=== PATIENT | female | born 1960 | race Caucasian/White ===

== ENCOUNTER 2020-12-22 09:34 | Emergency (ER) | payer OTHER, SELFPAY ==
--- NOTE | ~2020-12-22 | XR_ITS ---
EXAMINATION: XR LUMBOSACRAL SPINE CLINICAL INFORMATION: Pain COMPARISON: None TECHNIQUE: Three views of the lumbosacral spine. FINDINGS: There is curvature of the lumbar spine to the right. There is slight loss of height of the superior endplate of the L5 vertebral body questionable for mild compression fracture versus changes due to scoliosis. There is degenerative disc disease at L5-S1. There is lower lumbar spine facet arthritis. There is evidence of atherosclerotic disease. XR/XR lumbar spine 2-3V IMPRESSION: Mild scoliosis. Slight loss of height of the L1 vertebral body questionable for mild compression fracture versus changes due to scoliosis. Degenerative disc disease at L5-S1 and lower lumbar spine facet disease.
[2020-12-22 10:09] VITALS: BP 116/76; PULSE 84; RESP 18; TEMP 36.7; O2SAT 100; BMI 21.0
--- NOTE | 2020-12-22 10:58 | ED_ITS ---
HPI - Back Pain/Injury General Chief Complaint: Back Pain/Injury Stated Complaint: excruciating pain from ankles to hip Time Seen by Provider: 12/22/20 10:44 Source: patient Mode of arrival: ambulatory Limitations: no limitations History of Present Illness HPI Narrative: 60 yo female with hx of hypothyroidism and prior back pain with discectomy L5 many years ago comes in with 3 days of low back pain resulting in R leg pain worse with movement MD elicited complaint: back pain Pertinent past history: prior back pain Onset (ago): day(s) (3) Timing: constant and progressively worsening Severity: moderate Similar Symptoms Previously: No Quality: sharp and aching Location: lumbar spine Radiation: right leg below the knee Exacerbating factors: movement and walking Relieving factors: immobilization 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) Treatments prior to arrival: NSAIDS Work related injury: No Related Data Previous Rx's Medication Instructions Recorded cyclobenzaprine 10 mg tablet 10 mg PO TID PRN #14 tab 12/22/20 hydrocodone 5 mg-acetaminophen 325 1 tab PO Q6H PRN #12 tab 12/22/20 mg tablet lidocaine 4 % topical patch 1 patch TOPICAL DAILY PRN #10 ea 12/22/20 Allergies Allergy/AdvReac Type Severity Reaction Status Date / Time No Known Allergies Allergy Unverified 02/07/20 16:16 none Allergy Unknown Uncoded 06/12/19 00:00 Review of Systems Review of Systems: Constitutional : No Weight loss, No Fever, No Chills, ENT/Mouth : No Hearing loss, No Ear Pain, No Nasal Congestion, No Sinus Pain, No Hoarseness, No sore throat, No Rhinorrhea, No Swallowing Difficulty Cardiovascular : No Chest Pain, No SOB Respiratory : No Cough, No Dyspnea Gastrointestinal : No Nausea, No Vomiting, No Diarrhea, No abdominal Pain, No Hematochezia, No Melena Genitourinary : No Dysuria, No Urinary Frequency, No Hematuria, No Urinary Incontinence, Musculoskeletal : positive back pain Skin : No Skin Lesions, No rash Neuro : No Weakness, No Numbness, No Paresthesias, no loss of bowel or bladder incontinence, no saddle anesthesia PMFSH Past Medical History Attestation statement: The following information was validated with the patient. Medical History Hypothyroid Social History Social History (Updated 12/22/20 @ 11:11 by Danielle Rincon DO) Patient Tobacco Use Status: Current everyday Tobacco user Use of substances other than those prescribed or required for medical reasons: No Advance Directives: Yes Advance Directives Information Provided: Yes Advance Directives on File: No Patient : No Physical Exam Vital Signs: Vital Signs: Last Vital Signs Temp 98.0 F 12/22/20 10:09 Pulse 84 12/22/20 10:09 Resp 18 12/22/20 10:09 BP 116/76 12/22/20 10:09 Pulse Ox 100 12/22/20 10:09 Body Mass Index 21.0 Appearance: Alert. Oriented X3. No acute distress. Eyes: Pupils equal, round and reactive to light. ENT: Pharynx normal. Neck: Normal inspection. Neck supple. CVS: Normal heart rate and rhythm. Pulses normal. Respiratory: No respiratory distress. Breath sounds normal. Abdomen: Soft and nontender. Back: R lower back pain ttp R buttock pain with radiation down leg distal NV intact Skin: Skin warm and dry. Normal skin color. Normal skin turgor. Extremities: No lower extremity edema. No calf ttp Neuro: Oriented X 3. No motor deficit. No sensory deficit. Course Course Course Narrative: stable for DC can ambulate MDM - Back Pain/Injury MDM Narrative Medical decision making narrative: 60 yo female with hx of HTN, prior back pain with discectomy L5 many years ago comes in with 3 days of low back pain resulting in R leg pain worse with movement at this time her exam appears consistent with sciatica but given age and smoking history xray ordered, lyme test - PO pain control Discharge Plan Discharge Clinical Impression: Lumbar radiculopathy Patient Disposition: Home, Self-Care Instructions: Vertebral Compression Fracture (ED), Lumbar Radiculopathy (ED) Additional Instructions: return to ED for any worsening symptoms or concerns Mild scoliosis. Slight loss of height of the L1 vertebral body questionable for mild compression fracture versus changes due to scoliosis. Degenerative disc disease at L5-S1 and lower lumbar spine facet disease. Prescriptions: New cyclobenzaprine 10 mg tablet 10 mg PO TID PRN (Reason: muscle spasm) Qty: 14 RF: 0 lidocaine 4 % adhesive patch,medicated 1 patch topical DAILY PRN (Reason: pain) Qty: 10 RF: 0 hydrocodone-acetaminophen 5-325 mg tablet 1 tab PO Q6H PRN (Reason: pain) Qty: 12 RF: 0 Referrals: Della Rhodes DIRECTOR OF RESTAURANTS [Primary Care Provider] - 2 days Stand Alone Forms: Work/School Release
[2020-12-22] MEDS: predniSONE 20 MG TABLET 40 MG PO (11:19)
[2020-12-22] MEDS: Cyclobenzaprine HCl 10 MG TABLET PO (11:19)
[2020-12-23 21:12] LABS: Lyme Abs Screen <0.90 index
== END 2020-12-22 12:34 | disposition home or self-care (01) ==
PROVIDERS: Emergency Provider Emergency Medicine; PCP Nurse Practitioner Family
DX: M54.16 Radiculopathy, lumbar region (principal); I10 Essential (primary) hypertension
CPT/HCPCS: 36415; 72100; 86617; 86618; 99283

== ENCOUNTER 2023-03-19 13:11 | Outpatient (AMB) | payer OTHER, SELFPAY ==
[2023-03-19 13:46] VITALS: BP 112/68; PULSE 74; TEMP 36.7; O2SAT 95; BMI 19.0
--- NOTE | 2023-03-19 13:46 | MHC.OFFWIV ---
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 She states that she has a history of having a cavity filled to a tooth on her right lower jaw, which caused her some pain over the following few days, however symptoms seem to have resolved until starting up with severe pain to the area just under the tooth, and radiating along the gumline, and now swelling to the lower jaw upon wakening this morning. She denies fever or chills, headache or dizziness or vertigo, myalgias or malaise, nausea vomiting or diarrhea, or other significant associated symptoms. She does have a new dentist, and plans to see them early next week. [facility] Medical History Hypothyroid Social History (Updated 12/22/20 @ 11:11 by Pippa Rincon DO) Patient Tobacco Use Status: Current everyday Tobacco user Physical Exam Vital Signs: Last Vital Signs Temp 98.0 F 03/19/23 13:46 Pulse 74 03/19/23 13:46 BP 112/68 03/19/23 13:46 Pulse Ox 95 03/19/23 13:46 Oxygen Delivery Method Room Air 03/19/23 13:46 BMI result Body Mass Index 19.0 Const General: cooperative, healthy appearing, comfortable, no acute distress, alert, awake, Physically active and well groomed; No diaphoretic, ill appearing, intoxicated appearing, poor hygiene or tired appearing Nutritional Appearance: average body habitus Limitations: no limitations HEENT Head: Yes normal to inspection, Yes normocephalic and Yes atraumatic Face and sinus: Yes normal facial exam Mouth: lip normal and tongue normal Teeth and gingiva: fair dentition and gingiva abnormal (Right lower gumline is edematous and erythematous, tender to palpation) diffusely erythematous and tender Neck Neck: Yes normal visual inspection, Yes no lymphadenopathy, Yes trachea midline, Yes supple and No anterior neck swelling Resp Effort & Inspection: normal respiratory effort Cardio Rate: regular rate Skin Other: Good color, warm and dry Psych Appearance: grossly normal Mental Status: mental status grossly normal Speech and movement: Normal speech and movement present Affect: normal affect Attitude: cooperative Thought process: Normal thought process present Insight: Good insight present (Psych) Judgement: Good judgement present (Psych) Assessment & Plan Assessment & Plan (1) Dental infection: Code(s): K04.7 - Periapical abscess without sinus Plan: At this time, she does not have any bony tenderness, so I think the abscess is localized to the gingiva. Due to patient's severe pain, I wrote her for prescription dose of ibuprofen, as well as alternating with acetaminophen with codeine low-dose for 2 days. I also started her on Augmentin for likely dental infection with abscess under a dental caries. She plans to call dentist on Tuesday for urgent appointment. In the meantime, she can go to the emergency department if abscess worsens, and she has increased swelling and pain to the jaw. Medications: New ibuprofen 800 mg PO Q8H PRN 30 tabs 0RF pain acetaminophen-codeine 300-15 mg max 4 tablets a day 1 tab PO Q4-6H PRN 8 tabs 0RF pain amoxicillin-pot clavulanate 875-125 mg 1 tab PO BID 7 days 14 tabs 0RF Coding Level of Care Code New Pt Level 4 (23689) Diagnoses Dental infection K04.7
== END 2023-03-19 14:19 | disposition home or self-care (01) ==
PROVIDERS: PCP Nurse Practitioner Family; Visit Provider Physician Assistant Medical
DX: K04.7 Periapical abscess without sinus (principal)
CPT/HCPCS: 99051; 99204

== ENCOUNTER 2024-09-06 13:51 | Outpatient (AMB) | payer OTHER, SELFPAY ==
[2024-09-06 14:47] VITALS: BP 110/70; PULSE 76; TEMP 36.5; O2SAT 97; BMI 19.7
--- NOTE | 2024-09-06 14:47 | AM.OFFWIN_ITS ---
Intake Vital Signs 09/06/24 14:47 Height 5 ft 3 in Weight 111 lb BMI 19.7 BP 110/70 Blood Pressure Location Lt brachial Position Sitting Pulse 76 Pulse Source Pulse Oximeter Temp 97.7 F Temp Source Oral Pulse Oximetry (%) 97 Oxygen Delivery Method Room Air Intake Visit Reasons: EP Deep cough, headache, aches Intake Note: Patient here for cough, headaches, body aches, vomiting and diarrhea that has been present for a couple of days. Patient Tobacco Use Status: Current everyday Tobacco user Allergies No Known Allergies Allergy (Unverified 09/06/24 14:49) Do you need a note to return to daycare/school/sports/work: Yes HPI HPI Comments History of Present Illness Details 63 y/o Female patient who presents to [facility] walk in clinic with c/o URI symptoms x 2 days. Pt reports Cough, Headaches, Body aches, Nausea, vomiting and diarrhea. PFSH Medical History (Updated 09/06/24 @ 15:15 by Lillian Helton NP) Acute respiratory disease Hypothyroid Social History (Updated 12/22/20 @ 11:11 by Pippa Rincon DO) Patient Tobacco Use Status: Current everyday Tobacco user Physical Exam Vital Signs: Last Vital Signs Temp 97.7 F 09/06/24 14:47 Pulse 76 09/06/24 14:47 BP 110/70 09/06/24 14:47 Pulse Ox 97 09/06/24 14:47 Oxygen Delivery Method Room Air 09/06/24 14:47 BMI result Body Mass Index 19.7 Const General: no acute distress; No comfortable Nutritional Appearance: thin Orientation/consciousness: patient oriented x3 HEENT Head: Yes normocephalic Ears: external ears normal and TM abnormal bulging bilateral and with fluid behind the TM bilateral General nose exam: Nasal discharge present Mouth: moist mucous membranes Throat: Yes uvula midline Resp Effort & Inspection: normal respiratory effort Auscultation: clear to auscultation bilaterally, no crackles, no rales, no rhonchi and no wheezes Cardio Rhythm: regular rhythm Heart sounds: S1 normal heart sound present and S2 normal heart sound present Neuro General: patient oriented x3, gait normal and moves all extremities Psych Speech and movement: Normal speech and movement present Assessment & Plan Assessment & Plan (1) Acute respiratory disease: Code(s): J06.9 - Acute upper respiratory infection, unspecified Plan: Ordered SARs Acetaminophne for pain relief OTC cough remedies. Rest and hydrate well with warm fluids. Orders: Orders SARS-CoV2/FLU/RSV Today J06.9 - Acute upper respiratory infection, unspecified Medications: New acetaminophen 1,000 mg (2 x 500 mg) PO Q6H PRN 30 caps 0RF pain R51.9 - Headache, unspecified dextromethorphan polistirex ER (Delsy 12 hour) 10 mL PO Q12H 89 mL 0RF cough J06.9 - Acute upper respiratory infection, unspecified, R05.9 - Cough, unspecified benzonatate 100 mg PO BID 60 caps 0RF R05.9 - Cough, unspecified Discontinued ibuprofen Discontinued Reason: Patient Completed Course 800 mg PO Q8H PRN 30 tabs 0RF pain Coding Level of Care Code Est Pt Level 4 (55781) Diagnoses Acute respiratory disease J06.9 Time Spent (min) 20
== END 2024-09-06 15:32 | disposition home or self-care (01) ==
PROVIDERS: PCP Nurse Practitioner Family; Visit Provider Nurse Practitioner Family
DX: J06.9 Acute upper respiratory infection, unspecified (principal)

== ENCOUNTER 2024-09-06 13:51 | Outpatient (REF) | payer OTHER, SELFPAY ==
[2024-09-06 18:08] LABS: Influenza A PCR NEGATIVE (Negative); Influenza B PCR NEGATIVE (Negative); Resp Syncy Virus RNA Qual PCR NEGATIVE (Negative); SARS COV2 PCR INHOUSE NEGATIVE (Negative)
== END 2024-09-06 13:52 | disposition home or self-care (01) ==
LOC: HO.LAB 13:51
PROVIDERS: Nurse Practitioner Family; PCP Nurse Practitioner Family
DX: J06.9 Acute upper respiratory infection, unspecified (principal)
CPT/HCPCS: 0241U

== ENCOUNTER 2024-09-12 10:54 | Outpatient (AMB) | payer OTHER, SELFPAY ==
--- NOTE | 2024-09-12 11:00 | AM.OFFWIN_ITS ---
Intake Vital Signs 09/12/24 11:02 Weight 114 lb BP 110/74 Blood Pressure Location Rt brachial Position Sitting Pulse 72 Pulse Source Pulse Oximeter Temp 97.8 F Temp Source Oral Pulse Oximetry (%) 93 Oxygen Delivery Method Room Air Intake Visit Reasons: EP-sinus infection Intake Note: Patient here for sinus infection, headaches and eye pressure. Patient Tobacco Use Status: Current everyday Tobacco user Allergies No Known Allergies Allergy (Unverified 09/06/24 14:49) Do you need a note to return to daycare/school/sports/work: No HPI HPI Comments History of Present Illness Details Patient is a 63-year-old female with a past medical history of hypothyroid complaining of continued sinus symptoms and left ear pain. She r eports a history of sinusitis symptoms last week, including left-sided maxillary pain, headache, and neck pain, which worsens on bending forward. Initial presentation included fever, vomiting, and diarrhea. She reports a recent decline in auditory acuity necessitating increased television volume. She felt the use of Delsym and Benzonatate was noted to be conflicted so she took the Delsym. The patient has not used nasal sprays or irrigation techniques at home. Physical Exam General: Cooperative, healthy appearing, comfortable and no acute distress Orientation/consciousness: Patient oriented x3 Limitations: No limitations Head: Normal to inspection Ears: Hearing impaired, left ear appears infected and red Nose: Normal external nose present, Normal nares present and No nasal discharge present Face and sinus: Normal facial exam and ethmoid sinuses tender Mouth: Normal oral and palatal mucosa present and moist mucous membranes Throat: Yes tonsils normal, Yes uvula midline. Posterior oropharynx erythema Eyes: Appearance normal, both eyes and all related structures Neck: Neck pain present Respiratory: Normal respiratory effort, able to speak in complete sentences, no respiratory distress, not tachypneic, no tripod positioning and no use of accessory muscles Skin: No rashes or lesions noted Neuro: Patient oriented x3 Extremities: Normal to inspection and Yes no clubbing, cyanosis or edema [facility] Medical History (Updated 09/12/24 @ 11:25 by Anabella Nogueira PA-C) Acute respiratory disease Hypothyroid Social History (Updated 12/22/20 @ 11:11 by Pippa Rincon DO) Patient Tobacco Use Status: Current everyday Tobacco user Review of Systems Const All systems reviewed & are unremarkable except as noted in HPI and below Physical Exam Vital Signs: Last Vital Signs Temp 97.8 F 09/12/24 11:02 Pulse 72 09/12/24 11:02 BP 110/74 09/12/24 11:02 Pulse Ox 93 09/12/24 11:02 Oxygen Delivery Method Room Air 09/12/24 11:02 Assessment & Plan Assessment & Plan (1) Acute bacterial sinusitis: Code(s): J01.90 - Acute sinusitis, unspecified; B96.89 - Other specified bacterial agents as the cause of diseases classified elsewhere Plan: VSS, pt well appearing and PE remarkable for bilateral ethmoid sinus tenderness. Flonase is prescribed for sinus relief, explained how to be administered correctly with two sprays per nostril twice daily to enhance efficacy. Augmentin is introduced to combat the bacterial aspect of the potential sinus and ear infections, given the duration of non-improvement with previous measures. Delsym and Benzonatate will not be used together; the patient is advised to adhere to the singular usage of such medications tailored to symptom relief appropriately. COVID-19 retesting is considered necessary due to the possible improper sampling of earlier tests. Patient was informed and verbally consented to the use of an ambient scribe for clinic note documentation during this visit Orders: Orders SARS-CoV2/FLU/RSV Today R09.89 - Other specified symptoms and signs involving the circulatory and respiratory systems Medications: New fluticasone propionate 50 mcg/actuation administer into each nostril 1 spray intranasal Q12H 16 grams 0RF amoxicillin-pot clavulanate 875-125 mg 1 tab PO Q12H 14 tabs 0RF Coding Level of Care Code New Pt Level 3 (18148) Diagnoses Acute bacterial sinusitis J01.90; B96.89
[2024-09-12 11:02] VITALS: BP 110/74; PULSE 72; TEMP 36.6; O2SAT 93
--- OUTSIDE RECORDS SUMMARY | 2024-09-12 13:05 | XMS_ITS | Continuity of Care Document ---
Author Organization [facility] Address [address] [place] [address]- Care Team Providers Care Pelletizer Tender Name Role Phone Carmelo BRUCE, Della Cook Primary Care Physician Encounter [facility] ACCT R [id number] Date(s): 08/07/24 - 09/06/24 [facility] [address] [place] [address]- Encounter Type: Triage Allergies, Adverse Reactions, Alerts No Known Allergies Immunizations Given and Recorded Vaccine Date Status Refusal Reason SARS-CoV-2 (COVID-19) mRNA-1273 vaccine 09/20/20 R ecorded SARS-CoV-2 (COVID-19) mRNA-1273 vaccine 09/02/20 R ecorded SARS-CoV-2 (COVID-19) mRNA-1273 vaccine 08/21/20 R ecorded SARS-CoV-2 (COVID-19) mRNA-1273 vaccine 08/05/20 R ecorded tetanus/diphtheria/pertussis, acel(Tdap) 05/23/15 Recorded Medications citalopram 10 mg oral tablet 1 tablet, By Mouth, Daily, # 30 tablet, 4 Refills, Maintenance, 08/08/24 11:35:00 AM EDT, [facility], 160.2, cm, 05/04/24 12:47:00 EST, Height Start Date: 08/08/24 Status: Ordered Quantity: 30.0 Unit: tablet Repeat number: 1 Fosamax 70 mg oral tablet 1 tablet = 70 mg, By Mouth, Every week, # 12 tablet, 3 Refills, Maintenance, 10/28/23 9:50:00 AM EDT,Tablet, [facility], Partial fill upon patient request if the prescription is for a schedule IIopioid drug., 160.2, cm, 10/28/23 9:28:00 EDT, Height Start Date: 10/28/23 Status: Ordered Quantity: 12.0 Unit: tablet Repeat number: 4 Multivitamin 0 Refills, Maintenance, 04/22/23 2:06:00 PM EST Start Date: 04/22/23 Status: Ordered Repeat number: 1 Probiotic Formula By Mouth, Daily, 0 Refills, Maintenance, 04/22/23 2:06:00 PM EST Start Date: 04/22/23 Status: Ordered Repeat number: 1 Wellbutrin XL 150 mg/24 hours oral tablet, extended release 1 tablet = 150 mg, By Mouth, Every 24 hours, replace 300mg, # 30 tablet, 6 Refills, Maintenance, 08/26/23 9:21:00 AM EDT, [facility], Partial fill upon patient request if the prescription is for aschedule II opioid drug., 160.2, cm, 08/26/23 9:04:00 EDT, Height Start Date: 08/26/23 Stop Date: 03/23/24 Status: Ordered Quantity: 30.0 Unit: tablet Repeat number: 7 Problem List Condition Confirmation Course Effective Dates Status H ealth Status Informant Cholecystitis, chronic Confirmed 05/23/17 Active Lumbar disc disease Confirmed 05/23/93 Active Pulmonary nodules Confirmed Active Osteoporosis Confirmed Active Depression, major, recurrent Confirmed Active Smoker 1 Confirmed 05/23/79 Active Subclinical hypothyroidism Confirmed 05/23/06 Active Vitamin D deficiency Confirmed 05/23/13 Active 12 PPD Social History Social History Type Response Smoking Status 5-9 cigarettes (betw een 1/4 to 1/2 pack)/day in last 30 days; Type: Cigarettes; Tobacco use times per day: 0.5 PPD previously 1.5 PPD up until 2012; Started at age: 18; entered on: 04/22/23 Sex Sex Representation Female (finding) Patient Care team information Care Team Personnel Name: Carmelo BRUCE, Della Cook Position: [facility]O Associate Professional Member Role: PCP Address: [address] [place] [phone]- Telecom: Care Team Related Persons Name: AMANDA ALICIA Insurance Providers Guarantor name: SATNAM ALICIA Health Plan Information #: 1 Payer: [facility] Member Number: NA Policy Number: NA Group Number: NA
--- OUTSIDE RECORDS SUMMARY | 2024-09-12 13:05 | XMS_ITS | Continuity of Care Document ---
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 Name Role Phone Carmelo BRUCE, Della Cook Primary Care Physician Encounter [facility] ACCT R [id number] Date(s): 08/07/24 - 09/06/24 [facility] [address] [place] [address]- Encounter Type: Triage Allergies, Adverse Reactions, Alerts [...] Personnel Name: Carmelo BRUCE, Della Cook Position: [facility] Associate Professional Member Role: PCP Address: [address] [place] [phone]- Telecom: Care Team Related Persons Name: AMANDA ALICIA Insurance Providers Guarantor name: SATNAM ALICIA Health Plan Information #: 1 Payer: [facility] Member Number: NA Policy Number: NA Group Number: NA
--- OUTSIDE RECORDS SUMMARY | 2024-09-12 13:05 | XMS_ITS | Continuity of Care Document ---
Author Organization [facility] Address [address] [place] [address]- Care Team Providers Care Pilates Coordinator Name Role Phone Carmelo BRUCE, Della Cook [id number] [place] [address]- Encounter Type: Triage Allergies, Adverse Reactions, Alerts [...] Care team information Care Team Personnel Name: Della Rhodes NP Position: [facility] PC[facility] Associate Professional Member Role: PCP Address: [address] [place] [phone]- Telecom: Care Team Related Persons Name: AMANDA ALICIA Insurance Providers Guarantor name: SATNAM ALICIA Health Plan Information #: 1 Payer: [facility] Member Number: NA Policy Number: NA Group Number: NA
== END 2024-09-12 11:37 | disposition home or self-care (01) ==
PROVIDERS: PCP Nurse Practitioner Family; Visit Provider Physician Assistant
DX: J01.90 Acute sinusitis, unspecified (principal); B96.89 Other specified bacterial agents as the cause of diseases classified elsewhere

== ENCOUNTER 2024-09-12 10:54 | Outpatient (REF) | payer OTHER, SELFPAY ==
[2024-09-12 14:38] LABS: Influenza A PCR NEGATIVE (Negative); Influenza B PCR NEGATIVE (Negative); Resp Syncy Virus RNA Qual PCR NEGATIVE (Negative); SARS COV2 PCR INHOUSE NEGATIVE (Negative)
== END 2024-09-12 10:55 | disposition home or self-care (01) ==
LOC: HO.LAB 10:54
PROVIDERS: PCP Nurse Practitioner Family; Visit Provider Physician Assistant
DX: J01.90 Acute sinusitis, unspecified (principal); B96.89 Other specified bacterial agents as the cause of diseases classified elsewhere; R09.89 Other specified symptoms and signs involving the circulatory and respiratory systems; R50.9 Fever, unspecified
CPT/HCPCS: 0241U

== ENCOUNTER 2025-04-05 09:38 | Outpatient (REF) | payer OTHER, BC, SELFPAY ==
[2025-04-05 11:08] LABS: MANUAL DIFF FLAG NO
[2025-04-05 11:15] LABS: Hematocrit 41.0 % (37.0-47.0); Hemoglobin 13.7 g/dl (12.0-16.0); Imm Gran Abs Auto 0.02 X10*3/uL (0.00-0.03); Imm Gran Pct Auto 0.3 % (0.0-0.4); Lymphocytes Absolute Auto 1.3 X10*3/uL (1.2-4.9); Mean Corpuscular HGB Conc 33.4 g/dl (31.0-35.0); Mean Corpuscular Hemoglobin 30.0 pg (27.0-33.0); Mean Corpuscular Volume 89.7 fL (80.0-98.0); NRBC Abs Auto 0.000 X10*3/uL (0.0-0.012); NRBC Pct Auto 0.0 /100WBC (0.0-0.2); Platelet Count 211 X10*3/uL (160-400); Red Blood Count 4.57 X10*6/uL (4.20-5.50); White Blood Count 7.2 X10*3/uL (4.8-10.8)
[2025-04-05 12:29] LABS: Alanine Aminotransferase 22 U/L (0-31); Albumin Level 4.7 g/dL (3.5-5.0); Alkaline Phosphatase 137 U/L (39-117); Anion Gap 11 (12-20); Aspartate Amino Transferase 22 U/L (5-31); Blood Urea Nitrogen 18 mg/dL (9-16); Calcium 10.3 mg/dL (8.4-10.2); Carbon Dioxide 25 mmol/L (22-29); Chloride 110 mmol/L (96-108); Estimated Glomerular Filt Rate > 60; Potassium 4.6 mmol/L (3.3-5.1); Sodium 141 mmol/L (135-145); Total Protein 7.0 g/dL (6.5-8.0)
== END 2025-04-05 09:39 | disposition home or self-care (01) ==
LOC: HO.LAB 09:38
PROVIDERS: PCP Nurse Practitioner Family; Visit Provider Nurse Practitioner
DX: Z01.818 Encounter for other preprocedural examination (principal); D12.6 Benign neoplasm of colon, unspecified; K59.04 Chronic idiopathic constipation; R11.10 Vomiting, unspecified; K58.1 Irritable bowel syndrome with constipation; Z12.11 Encounter for screening for malignant neoplasm of colon
CPT/HCPCS: 36415; 80053; 85025

== ENCOUNTER 2025-04-05 09:38 | Outpatient (AMB) | payer OTHER, BC, SELFPAY ==
--- NOTE | 2025-04-05 09:47 | MHC.OFFVIS ---
Vital Signs 04/05/25 09:53 Height 5 ft 3 in Weight 108 lb BMI 19.1 BP 97/55 L Blood Pressure Location Lt brachial Position Sitting Pulse 73 Intake Visit Reasons: Colonoscopy Screening Intake Note: New patient in office today for colonoscopy screening. CC: Pt c/o constipation and states that she's tried everything. She states that she's been up to 8 days without a BM. She also reports that she has to wear pads due to rectal bleeding. She believes that she was told she might have a fistula. She reports having hemorrhoids, abd bloating, and nausea at least once a week. She stats that she has been eating yogurt with blueberries pretty much every morning and has been more regular. 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 She is referred by [facility] in [facility]. PMX Smoker Hypothyroid Osteoporosis Chronic cholecystitis Lumbar degenerative disc disease Depression * SURGICAL HISTORY Cholecystectomy Colonoscopy-2014 Lumbar diskectomy Bartholin cyst removal * ALLERGIES: NKDA * [facility] LABS: Needs labs TODAY'S VISIT Prior scope: Yes, 2014, but missed 2019 r/t reese had TA Bowel or upper GI problems: SHE IS HAVING FREQUENT RB with blood filling the bowel red - this has been an issue since 2014. She suffers CIC severely and will not move her bowels but q3 days. She has tried eating yogurt with blueberries, and she is moving then better but the stiools are still quite hard. She vomits bile about once a week since her GB removal and it is just bile. 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 Anesthesia or sedation problems: She has had trouble coming out of traditional conscious sedation, no other problems. ID problems: No FHX: She had atleast 1 polys in 2015 and this was here but the information is lost to computer conversions. [facility] Medical History Bartholin's gland cyst Acute respiratory disease Acute bacterial sinusitis Hypothyroid Surgical History H/O cervical polypectomy History of back surgery H/O colonoscopy History of cholecystectomy Family History (Updated 04/05/25 @ 10:09 by ADALBERTO Holliday) Family/Other Colon cancer Family/Other FH: colon polyps Social History Alcohol intake: former Patient Tobacco Use Status: Current everyday Tobacco user Review of Systems Const Denies fatigue, Denies fever(s), Denies night sweats, Reports poor appetite and Reports weight loss ENT Reports Normal hearing present, Denies dental pain, Denies dysphagia, Denies hearing loss, Denies mouth pain, Denies odynophagia, Denies throat swelling, Denies tongue swelling and Reports other (Dentition adequate) Card Reports palpitations Resp Reports no additional complaints GI Details: Denies abdominal pain, Denies melena, Reports bloating, Denies hematochezia, Reports constipation, Denies GI cramping, Denies dysphagia, Denies excessive flatus, Denies early satiety, Reports dyspepsia, Reports heartburn, Denies diarrhea, Denies nausea, Denies odynophagia, Reports vomiting and Denies hematemesis Skin/Breast Denies pruritus, Denies lesions, Denies rash and Denies jaundice Neuro Reports Normal hearing present and Denies Abnormal speech present Psych Reports anxiety Endo Denies fatigue and Reports palpitations Aller/Immun Denies throat swelling and Denies tongue swelling Physical Exam Vital Signs: Last Vital Signs Pulse 73 04/05/25 09:53 BP 97/55 L 04/05/25 09:53 BMI result Body Mass Index 19.1 Const General: cooperative, no acute distress, well developed and well groomed Nutritional Appearance: well nourished and thin Orientation/consciousness: oriented to person, oriented to place and oriented to time Limitations: No language barrier HEENT Head: Yes normocephalic and Yes atraumatic Eyes General: appearance normal, both eyes and all related structures Pupils: Equal, round and reactive pupils present Neck Neck: Yes normal visual inspection and Yes no lymphadenopathy Thyroid: Thyroid normal Resp Effort & Inspection: normal respiratory effort and able to speak in complete sentences Auscultation: clear to auscultation bilaterally Cardio Rate: regular rate Rhythm: regular rhythm Heart sounds: Normal, physiologic split S2 sound present Peripheral pulses: radial pulses present and posterior tibial pulses present GI Inspection: No distended and No Abdominal panniculus present Palpation (GI): Soft to palpation, nontender, no guarding, not rigid and Hepatosplenomegaly present Percussion: Yes normal to percussion Auscultation: normal bowel sounds Rectal Exam - Female: deferred Skin General skin exam: no rashes or lesions noted, turgor normal, skin not dry, no jaundice, No spider nevi and no striae Rashes: no rashes Nails: normal Neuro General: oriented to person, oriented to place and oriented to time Cranial nerves: Yes Equal, round and reactive pupils present and Yes Normal hearing present Speech: No Abnormal speech present Extrem General: Yes normal to inspection, No clubbing, No cyanosis and No edema Psych Appearance: grossly normal and well kempt Mental Status: mental status grossly normal Speech and movement: Normal speech and movement present Affect: normal affect Attitude: cooperative Thought process: Normal thought process present and not confabulating Thought content: Normal thought content present Insight: Fair insight present (Psych) and Limited insight present (Psych) Judgement: Fair judgement present (Psych) and Limited judgement present (Psych) Assessment & Plan Assessment & Plan (1) Pre-op examination: Code(s): Z01.818 - Encounter for other preprocedural examination Category: Medical (2) Tubular adenoma of colon: Comment: [address] Rhodes Code(s): D12.6 - Benign neoplasm of colon, unspecified Category: Medical (3) Chronic idiopathic constipation: Code(s): K59.04 - Chronic idiopathic constipation Category: Medical (4) Vomiting: Code(s): R11.10 - Vomiting, unspecified Category: Medical Plan Subjective Patient presents to discuss scheduling a colonoscopy; reports being overdue. Prior colonoscopy in May 2014 with polyps and was on a 5?year surveillance plan with repeat planned for 2019 but deferred during COVID. Currently reports longstanding severe constipation with hard stools, intervals up to eight days without a bowel movement, persistent sensation of incomplete evacuation, and painful defecation. Describes significant rectal bleeding, at times filling the toilet bowl red and bleeding with cough or passing gas; wears a pad daily. Notes hemorrhoids and was previously told there may have been a fistula. Abdominal pain is frequent, typically below the umbilicus; also episodic upper abdominal pain since cholecystectomy, often in the morning, associated with nausea and bilious vomiting about once weekly that relieves the pain. Dietary changes (daily yogurt with blueberries) have led to more regular bowel movements but stools remain hard and painful. Reports weight loss over approximately five years. Has tried multiple OTC agents including lactulose (ineffective), polyethylene glycol (stopped due to flavor change), docusate, and dulcolax. Reports prior hypothyroidism treated with levothyroxine, with recent TSH reported as normal. Notes palpitations; wore a ZIO patch and had a stress test with an abnormal result per patient, with cardiac CT with nuclear study scheduled on the of this month. Smokes; has nicotine patches from PCP and is working on quitting. States prolonged emergence from prior sedation (?twilight?) and prefers not to recall the procedure. Requests a female endoscopist and Tuesday scheduling due to work (has Fridays off). Family history notable for a first cousin in her 40s with colon cancer currently receiving treatment prior to resection, and another first cousin with numerous colon polyps requiring frequent surveillance. Objective Assessment & Plan Colorectal cancer screening/surveillance; history of polyps; rectal bleeding: Overdue for surveillance colonoscopy (last 2014 with polyps; 2019 deferred). Ongoing significant rectal bleeding and chronic constipation. Will proceed with colonoscopy scheduling. - Order colonoscopy with preference for female endoscopist - Request Tuesday scheduling if feasible; anticipate May?June timeframe; scheduling to contact patient in approximately 8 weeks with date/time - Provide bowel prep prescription now so patient has it in advance - Pre-procedure instructions reviewed: no solid food 24 hours prior; clear liquids only with aggressive hydration; patient will arrange a ride home - Order required pre-op labs for anesthesia; will defer repeating thyroid studies given recent normal TSH reported by patient - Given recent cardiac evaluation for palpitations and abnormal stress test per patient report, will await upcoming cardiac imaging; obtain cardiology clearance if indicated prior to sedation Chronic constipation with painful hard stools; suspected slow transit; hemorrhoids: Longstanding constipation refractory to multiple OTC agents with associated pain and hemorrhoidal bleeding. - Initiate linaclotide (Linzess) at a mid-range dose - Administration counseling: take first thing in the morning with a full glass of water, ideally before food; consider a small cracker if needed to tolerate; take first dose on a day at home as response may be brisk - If diarrhea occurs, hold and consider [id number] dosing; if inadequate effect, will consider dose adjustment at follow-up - Continue current tolerable dietary measures (e.g., yogurt with blueberries) as helpful - Colonoscopy will also evaluate source of bleeding Palpitations/abnormal stress test under evaluation: Ongoing cardiac workup with ZIO monitoring completed and cardiac CT with nuclear component scheduled. - Await results; coordinate with cardiology for procedural clearance as needed prior to colonoscopy sedation Post-cholecystectomy upper abdominal pain with intermittent bilious emesis: Occurs about weekly and resolves after vomiting. May be related to severe constipation; will reassess after constipation management. - Focus on bowel regimen optimization as above; reassess symptoms at follow-up Follow-up: Return in approximately 6 weeks to assess response to linaclotide, review bowel prep readiness, and confirm cardiac clearance and colonoscopy scheduling. Seek care sooner for worsening bleeding, severe abdominal pain, persistent vomiting, fever, or inability to tolerate oral intake. Orders: Orders Comprehensive Met. Panel Today Z01.818 - Encounter for other preprocedural examination Complete Blood Count Auto Diff Today Z01.818 - Encounter for other preprocedural examination Referrals GI Procedure Notification Z01.818 - Encounter for other preprocedural examination Medications: New peg 3350-electrolytes 236-22.74-6.74 -5.86 gram (Golytely) until fecal effluent is clear; do not exceed a total volume of 2,000 mL 240 mL PO Q10M 4,000 mL 0RF 1 day Z12.11 - Encounter for screening for malignant neoplasm of colon linaclotide (Linzess) Take first thing in the morning with a full glass of water. 145 mcg PO QAM 30 caps 3RF K58.1 - Irritable bowel syndrome with constipation bisacodyl (Dulcolax (bisacodyl)) 10 mg (2 x 5 mg) PO BEDTIME 4 tabs 0RF 2 days Coding Level of Care Code New Pt Level 3 (52465) Diagnoses Pre-op examination Z01.818 Tubular adenoma of colon D12.6 Chronic idiopathic constipation K59.04 Vomiting R11.10
[2025-04-05 09:53] VITALS: BP 97/55; PULSE 73; BMI 19.1
== END 2025-04-05 10:44 | disposition home or self-care (01) ==
PROVIDERS: PCP Nurse Practitioner Family; Visit Provider Nurse Practitioner
DX: Z01.818 Encounter for other preprocedural examination (principal); Z12.11 Encounter for screening for malignant neoplasm of colon; Z86.0101 Personal history of adenomatous and serrated colon polyps; K59.04 Chronic idiopathic constipation; R11.10 Vomiting, unspecified
CPT/HCPCS: 99203